=== PATIENT | male | born 1945 | race Caucasian/White ===

== ENCOUNTER 2020-01-12 08:11 | Outpatient (CLI) | payer OTHER | END 2020-01-12 08:17 | disposition home or self-care (01) | LOC: SONOGRAMA 08:11 → MAMO-SONO 08:45 | PROVIDERS: ATTEND Specialist | DX: R97.20 Elevated prostate specific antigen [PSA] (principal); N40.3 Nodular prostate with lower urinary tract symptoms ==

== ENCOUNTER 2023-05-04 09:01 | Day surgery (SDC) | payer OTHER ==
[~2023-05-04] VITALS: Ht 165.1 cm; Wt 68.0 kg
[~2023-05-04 09:01] MED LIST: AMLODIP PO; ENALAPRIL MALEAT5 MG PO
[2023-05-04] MEDS ORDERED: PERCOCET 5-3251 EACH PO (13:57)
[2023-05-04] MEDS ORDERED: COLACE100 MG PO (13:57)
[2023-05-04] MEDS ORDERED: NEURONTIN300 MG PO (13:57)
== END 2023-05-04 20:10 | disposition home or self-care (01) ==
LOC: CIR.AMB 09:01
PROVIDERS: ATTEND Surgery
DX: K64.4 Residual hemorrhoidal skin tags (principal); K64.0 First degree hemorrhoids; K62.89 Other specified diseases of anus and rectum; D01.3 Carcinoma in situ of anus and anal canal; Z20.822 Contact with and (suspected) exposure to COVID-19; I10 Essential (primary) hypertension